=== PATIENT | female | born 1950 | race Caucasian/White ===

== ENCOUNTER 2017-02-03 20:56 | Emergency (ER) | payer MEDICARE, BC ==
--- NOTE | 2017-02-03 22:37 | RADIOLOGY REPORT (SQ) ---
EXAM DESCRIPTION: FOOT LEFT COMPLETE COMPLETED DATE/TIME: 02/03/2017 10:12 pm REASON FOR STUDY: pain COMPARISON: None. NUMBER OF VIEWS: Three views. TECHNIQUE: AP, lateral and oblique radiographic images acquired of the left foot. LIMITATIONS: None. FINDINGS: MINERALIZATION: Normal. BONES: Mildly comminuted intra-articular calcaneus fracture with fracture lines extending into the ca lcaneal cuboid joint, no significant displacement. No dislocation. No worrisome bone lesions. JOINTS: No effusions. SOFT TISSUES: No soft tissue swelling. No foreign body. OTHER: No other significant finding. IMPRESSION: Mildly comminuted intra-articular calcaneus fracture with fracture lines extending into the calcaneal cuboid joint, no significant displacement. TECHNICAL DOCUMENTATION: JOB ID: [id number] [employer]- All Rights Reserved
[2017-02-03] MEDS ORDERED: HYDROCODONE/ACETAMINOPHEN 5-325 MG TABLET PO ONE (22:54)
--- NOTE | 2017-02-03 23:17 | ER Document Report ---
ED General - General Chief Complaint: Foot Injury Stated Complaint: LEFT FOOT INJURY/FALL Time Seen by Provider: 02/03/17 22:18 Notes: Patient is a pleasant 58-year-old female presents with complaints of pain in the left heel. She missed a step going down steps and came down hard onto her foot. She says she has been unable to bear weight on it since. She has some swelling that goes through to the dorsum of the foot and the lateral aspect. She denies any injuries to her ankle. No injuries to her knee or hip. She denies any other complaints at this time. TRAVEL OUTSIDE OF THE [place] IN LAST 30 DAYS: No - Related Data Allergies/Adverse Reactions: pentazocine lactate [From [employer]] Allergy (Verified 02/03/17 21:09) ITCHING Past Medical History - Social History Smoking Status: Unknown if Ever Smoked Frequency of alcohol use: None Drug Abuse: None Family History: Reviewed & Not Pertinent - Past Medical History Cardiac Medical History: Reports: Hx Hypertension Denies: Hx Heart Attack Pulmonary Medical History: Denies: Hx Asthma Neurological Medical History: Denies: Hx Cerebrovascular Accident, Hx Seizures Renal/ Medical History: Denies: Hx Peritoneal Dialysis GI Medical History: Reports: Hx Hiatal Hernia. Denies: Hx Hepatitis, Hx Ulcer Infectious Medical History: Denies: Hx Hepatitis Past Surgical History: Reports: Hx Hysterectomy, Hx Mastectomy - BILATERAL. Denies: Hx Open Heart Surgery, Hx Pacemaker Review of Systems - Review of Systems Notes: My Normal Review Basic REVIEW OF SYSTEMS: CONSTITUTIONAL : Denies fever, chills, or sweats. Denies recent illness. MUSCULOSKELETAL: Left foot pain. SKIN: Denies rash or skin lesions. NEUROLOGICAL: Denies sensory or motor loss. ALL OTHER SYSTEMS REVIEWED AND NEGATIVE. Physical Exam - Vital signs Vitals: Temp Pulse Resp BP Pulse Ox 98.3 F 102 H 20 132/83 H 93 02/03/17 21:10 02/03/17 21:10 02/03/17 21:10 02/03/17 21:10 02/03/17 21:10 - Notes Notes: General Appearance: Well nourished, alert, cooperative, no acute distress, mild to moderate obvious discomfort. Vitals: reviewed, See vital signs table. Extremities: strength 5/5 in all extremities, good pulses in all extremities, patient has some bruising and swelling to the lateral aspect of the foot. She has tenderness palpation of the calcaneus and the lateral aspect of the foot up to the dorsum of the lateral aspect of the foot. She still able to flex and extend her foot but has some pain in doing so. No pain to palpation over the Achilles tendon itself. Skin: warm, dry, appropriate color, no rash Neuro: speech clear, oriented x 3, normal affect, responds appropriately to questions. Course - Re-evaluation Re-evalutation: 02/04/17 05:57 Patient's x-ray unfortunately does show an Achilles fracture. It is nondisplaced. I will place her in a posterior splint. I will refer her to orthopedic also informed the patient that she can follow-up with podiatry if there is a template clerk that she prefers. I have prescribed her some pain medicine. I encouraged her return to ER immediately if she has worsening pain or swelling, numbness or weakness in the foot, or if she has further concerns. Patient agrees with plan will be discharged home. Dictation of this chart was performed using voice recognition software; therefore, there may be some unintended grammatical errors. - Vital Signs Vital signs: Temp Pulse Resp BP Pulse Ox 98.3 F 85 18 135/80 H 100 02/03/17 21:10 02/03/17 23:52 02/03/17 23:52 02/03/17 23:52 02/03/17 23:52 Discharge - Discharge Clinical Impression: Left calcaneal fracture Qualifiers: Encounter type: initial encounter Calcaneus location: unspecified portion of calcaneus Fracture type: closed Fracture alignment: nondisplaced Qualified Code( s): S92.002A - Unspecified fracture of left calcaneus, initial encounter for closed fracture Condition: Good Disposition: HOME, SELF-CARE Additional Instructions: Your x-ray shows that you have a fracture through your calcaneus. Please follow -up with the orthopedist or follow-up with the template clerk within a week for close reevaluation and further treatment. Please do not bear weight on-year- left foot. Please keep the splint in place. You can loosen the Adam wrap on the splint if you feel that is too tight. Please return to the ER immediately if you continue have worsening pain in her foot despite loosening the splint. Prescriptions: Hydrocodone/Acetaminophen [[place] 5-325 mg Tablet] 1 tab PO Q4 PRN #12 tablet PRN Reason: For [facility] Pain Forms: Return to Work Referrals: RACHEL HOYOS MD [ACTIVE STAFF] - Follow up in 3-5 days
[2017-02-04 00:29] VITALS: BP 135/80
== END 2017-02-03 23:52 | disposition home or self-care (01) ==
LOC: ER 20:56
PROC: 2W3RX1Z Immobilization of Left Lower Leg using Splint (ICD-10-PCS; principal; 2017-02-03)
DX: S92.002A Unspecified fracture of left calcaneus, initial encounter for closed fracture (principal); M79.672 Pain in left foot; X58.XXXA Exposure to other specified factors, initial encounter
CPT/HCPCS: 99283; 73630; 29515; A9270

== ENCOUNTER 2019-10-09 10:28 | Emergency (ER) | payer MEDICARE, BC ==
--- NOTE | 2019-10-09 11:16 | RADIOLOGY REPORT (SQ) ---
EXAM DESCRIPTION: CHEST SINGLE VIEW IMAGES COMPLETED DATE/TIME: 10/09/2019 11:06 am REASON FOR STUDY: bed 16 chest pain COMPARISON: None. EXAM PARAMETERS: NUMBER OF VIEWS: One view. TECHNIQUE: An AP view of the chest was obtained. RADIATION DOSE: NA LIMITATIONS: None. FINDINGS: LUNGS AND PLEURA: No consolidation, pleural effusion or pneumothorax. MEDIASTINUM AND HILAR STRUCTURES: No mediastinal or hilar contour abnormality. HEART AND VASCULAR STRUCTURES: The cardiac silhouette and pulmonary vasculature are within normal snow its. BONES: No acute findings. HARDWARE: Surgical clips that project within the left axilla and ACDF hardware. OTHER: No other finding. IMPRESSION: No acute cardiopulmonary process. TECHNICAL DOCUMENTATION: JOB ID: [id number] [employer]- All Rights Reserved Reading location - IP/workstation name: [email or web address]
[2019-10-09] MEDS ORDERED: NORMAL SALINE 500 ML IV ONE (11:20)
[2019-10-09] MEDS: NITROGLYCERIN 0.4 MG/TAB 25 TAB/BOTTLE SL PRN ×3 (11:26→12:01)
[2019-10-09 11:40] LABS: ABSOLUTE LYMPHOCYTES (AUTO) 2.1 10^3/uL (0.5-4.7); ABSOLUTE MONOCYTES (AUTO) 0.6 10^3/uL (0.1-1.4); ABSOLUTE NEUT (AUTO) 2.7 10^3/uL (1.7-8.2); BASOPHILS % (AUTO) 0.9 % (0-2); EOSINOPHILS % (AUTO) 0.1 % (0-6); HEMATOCRIT 39.9 % (36.0-47.0); HEMOGLOBIN 13.8 g/dL (12.0-15.5); LYMPHOCYTES % (AUTO) 38.3 % (13-45); MEAN CORPUSCULAR HEMOGLOBIN 29.8 pg (27.0-33.4); MEAN CORPUSCULAR HGB CONC 34.7 g/dL (32.0-36.0); MEAN CORPUSCULAR VOLUME 86 fl (80-97); MONOCYTES % (AUTO) 11.5 % (3-13); PLATELET COUNT 188 10^3/uL (150-450); RED BLOOD COUNT 4.64 10^6/uL (3.72-5.28); RED CELL DISTRIBUTION WIDTH 13.8 % (11.5-14.0); SEGMENTED NEUTROPHILS % (AUTO) 49.2 % (42-78); TOTAL CELLS COUNTED % (AUTO) 100 %; WHITE BLOOD COUNT 5.5 10^3/uL (4.0-10.5)
[2019-10-09 11:49] LABS: INTERNATIONAL RATION (INR) 1.06; PROTHROMBIN TIME 13.9 SEC (11.4-15.4)
[2019-10-09 11:50] LABS: PARTIAL THROMBOPLASTIN TIME 22.6 SEC (23.5-35.8)
[2019-10-09 11:52] LABS: D-DIMER 0.46 ug/mL (0.00-0.50)
[2019-10-09 12:04] LABS: ALBUMIN 4.1 g/dL (3.5-5.0); ALKALINE PHOSPHATASE 67 U/L (38-126); ANION GAP 6 (5-19); ASPARTATE AMINO TRANSFERASE 27 U/L (14-36); BILIRUBIN,TOTAL 0.3 mg/dL (0.2-1.3); BLOOD UREA NITROGEN 14 mg/dL (7-20); CALCIUM 9.2 mg/dL (8.4-10.2); CARBON DIOXIDE 30 mmol/L (22-30); CHLORIDE 100 mmol/L (98-107); CREATINE KINASE 112 U/L (30-135); GLUCOSE 93 mg/dL (75-110); POTASSIUM 4.4 mmol/L (3.6-5.0); TOTAL PROTEIN 6.5 g/dL (6.3-8.2)
[2019-10-09 12:11] LABS: URINE AMPHETAMINES SCREEN NEGATIVE; URINE BARBITURATES SCREEN NEGATIVE; URINE BENZODIAZEPINES SCREEN NEGATIVE; URINE COCAINE SCREEN NEGATIVE; URINE MARIJUANA (THC) SCREEN NEGATIVE; URINE METHADONE SCREEN NEGATIVE; URINE PHENCYCLIDINE SCREEN NEGATIVE
[2019-10-09] MEDS ORDERED: MORPHINE SULFATE 10 MG/ML INJ IV ONE (12:24)
[2019-10-09] MEDS ORDERED: ONDANSETRON HCL INJ/PF 4 MG/2 ML SDV IV ONE (12:24)
[2019-10-09 12:26] LABS: NT PRO BNP 19 pg/mL (<125)
[2019-10-09 12:29] LABS: CREATINE KINASE MB < 0.22 ng/mL (<4.55); TROPONIN I < 0.012 ng/mL
--- NOTE | 2019-10-09 13:50 | PDOC CONSULTATION ---
Consultation Consult Date: 10/09/19 Attending physician:: LEYDI STRANGE Provider Consulted: MARAL ARORA Consult reason:: Chest pressure History of Present Illness Admission Date/PCP: JUAN STEWART PA-C History of Present Illness: GORDON DUARTE is a 69 year old female with history of hypertension, hyperlipidemia, ex-smoker who quit in 1994 and without family history of premature coronary artery disease who is consulted by Dr. Strange for evaluation of chest pressure. The patient began with symptoms in on and off fashion approximately 4 weeks ago however these have worsened during this past week and now her pressure is lasted longer and now resolving spontaneously. This morning she began with chest pressure at around 0 645 and currently continues to have index symptoms. She localized it to the substernal area and also feels like a fullness that radiates to the neck without any other associated symptoms. She also relates feeling more sleepy and tired recently, she is sleeping more. Unfortunately, her in February 2019 and "I just feel like my did". She is very anxious about her symptoms. Physical exam on 10/09/2019 in the emergency room: GENERAL: Pleasant and conversational. Oriented x3 with normal mood. Not in acute distress. Well groomed and well developed. HEENT: Normocephalic, atraumatic. Pupils equal. Sclerae anicteric. Oropharynx moist. NECK: No JVD. No carotid bruits. LUNGS: Clear to auscultation bilaterally. Normal respiratory effort without the use of accessory muscles or intercostal retractions. CARDIOVASCULAR: Regular rate and rhythm, normal S1 and S2 without murmurs, rubs, or gallops. PMI not displaced. EXTREMITIES: No edema, no cyanosis, no clubbing. +2 pulses femoral and pedal pulses bilaterally. SKIN: No lesions or rashes. MUSCULOSKELETAL: No chest tenderness to palpation. NEUROLOGIC: Nonfocal. No gross sensory or motor deficits bilateral upper or lower extremities. Past Medical History Cardiac Medical History: Reports: Hypertension Denies: Myocardial Infarction Pulmonary Medical History: Denies: Asthma Neurological Medical History: Denies: Seizures GI Medical History: Reports: Hiatal Hernia Denies: Hepatitis Hematology: Denies: Anemia, Sickle Cell Disease Past Surgical History Past Surgical History: Reports: Hysterectomy, Mastectomy - BILATERAL Denies: Amputation, Pacemaker Social History Smoking Status: Former Smoker Family History Family History: Reviewed & Not Pertinent Parental Family History Reviewed: Yes Children Family History Reviewed: Yes Sibling(s) Family History Reviewed.: Yes Medication/Allergy Home Medications: Aspirin [Aspirin EC] 81 mg PO DAILY PRN 11/11/15 Besifloxacin HCl [Besivance 0.6% Oph Susp 5 ml] 1 drop OP .3 AND 8 TODAY 11/11/15 Cyclosporine 0.05% Oph Emulsio [Restasis 0.05% Opthalmic Droperette] 1 drop OP ASDIR PRN 11/11/15 Difluprednate [Durezol] 1 drop OP .3 AND 8 TODAY 11/11/15 Famotidine [Pepcid 20 mg Tablet] 20 mg PO BID 11/11/15 Glucosam/Chondr/Collagn/Hyalur [Glucosamine & Chondroitin Cap] 1 each PO DAILY 11/11/15 Ketotifen Fumarate [Refresh] 1 ml OP ASDIR PRN 11/11/15 Meloxicam [Mobic 7.5 Mg Tablet] 7.5 mg PO DAILY 11/11/15 Nepafenac [Ilevro] 1 drop OP .3 AND 8 TODAY 11/11/15 Franklin-3/Dha/Epa/Fish Oil [Franklin 3 500 Softgel] 1 each PO DAILY 11/11/15 Ramipril [Altace 5 mg Capsule] 5 mg PO DAILY 11/11/15 Simvastatin [Zocor 10 mg Tablet] 10 mg PO QHS 11/11/15 Spironolactone [Aldactone] 50 mg PO DAILY 11/11/15 Venlafaxine HCl [Effexor] 37.5 mg PO DAILY 11/11/15 Hydrocodone/Acetaminophen [[place] 5-325 mg Tablet] 1 tab PO Q4 PRN #12 tablet 02/03/17 Allergies/Adverse Reactions: pentazocine lactate [From Nexvet] Allergy (Verified 02/03/17 21:09) ITCHING Physical Exam Vital Signs: Temp Pulse Resp BP Pulse Ox 98.3 F 18 131/90 H 98 10/09/19 10:59 10/09/19 12:00 10/09/19 12:00 10/09/19 12:00 Intake & Output 10/08/19 10/09/19 10/10/19 06:59 06:59 06:59 Intake Total 500 Balance 500 Results Laboratory Results: 10/09/19 11:28 10/09/19 11:28 10/09/19 10/09/19 10/09/19 10:45 10:45 11:28 WBC Cancelled 5.5 RBC Cancelled 4.64 Hgb Cancelled 13.8 Hct Cancelled 39.9 MCV Cancelled 86 MCH Cancelled 29.8 MCHC Cancelled 34.7 RDW Cancelled 13.8 Plt Count Cancelled 188 Seg Neutrophils % Cancelled 49.2 Sodium Cancelled Potassium Cancelled Chloride Cancelled Carbon Dioxide Cancelled Anion Gap Cancelled BUN Cancelled Creatinine Cancelled Est GFR ( Amer) Cancelled Est GFR (Non-Af Amer) Cancelled Glucose Cancelled Calcium Cancelled Total Bilirubin Cancelled AST Cancelled Alkaline Phosphatase Cancelled Total Protein Cancelled Albumin Cancelled 10/09/19 11:28 WBC RBC Hgb Hct MCV MCH MCHC RDW Plt Count Seg Neutrophils % Sodium 136.4 L Potassium 4.4 Chloride 100 Carbon Dioxide 30 Anion Gap 6 BUN 14 Creatinine 0.72 Est GFR ( Amer) > 60 Est GFR (Non-Af Amer) Glucose 93 Calcium 9.2 Total Bilirubin 0.3 AST 27 Alkaline Phosphatase 67 Total Protein 6.5 Albumin 4.1 10/09/19 10/09/19 10/09/19 10:45 10:45 11:28 Creatine Kinase Cancelled 112 CK-MB (CK-2) Cancelled Troponin I Cancelled NT-Pro-B Natriuret Pep 10/09/19 11:28 Creatine Kinase CK-MB (CK-2) < 0.22 Troponin I < 0.012 NT-Pro-B Natriuret Pep 19 Impressions: Chest X-Ray 10/09/19 10:37 IMPRESSION: No acute cardiopulmonary process. 10/09/19 11:28 10/09/19 11:28 MCV 86 fl (80-97) 10/09/19 11:28 MCH 29.8 pg (27.0-33.4) 10/09/19 11:28 MCHC 34.7 g/dL (32.0-36.0) 10/09/19 11:28 RDW 13.8 % (11.5-14.0) 10/09/19 11:28 Seg Neutrophils % 49.2 % (42-78) 10/09/19 11:28 Chloride 100 mmol/L (98-107) 10/09/19 11:28 Carbon Dioxide 30 mmol/L (22-30) 10/09/19 11:28 Anion Gap 6 (5-19) 10/09/19 11:28 Est GFR ( Amer) > 60 (>60) 10/09/19 11:28 Est GFR (Non-Af Amer) Cancelled 10/09/19 10:45 Glucose 93 mg/dL (75-110) 10/09/19 11:28 Calcium 9.2 mg/dL (8.4-10.2) 10/09/19 11:28 Total Bilirubin 0.3 mg/dL (0.2-1.3) 10/09/19 11:28 AST 27 U/L (14-36) 10/09/19 11:28 Alkaline Phosphatase 67 U/L (38-126) 10/09/19 11:28 Total Protein 6.5 g/dL (6.3-8.2) 10/09/19 11:28 Albumin 4.1 g/dL (3.5-5.0) 10/09/19 11:28 10/09/19 10/09/19 10/09/19 10:45 10:45 11:28 Creatine Kinase Cancelled 112 CK-MB (CK-2) Cancelled Troponin I Cancelled NT-Pro-B Natriuret Pep 10/09/19 11:28 Creatine Kinase CK-MB (CK-2) < 0.22 Troponin I < 0.012 NT-Pro-B Natriuret Pep 19 Current Medication List Generic Name Dose Route Start Last Admin Trade Name Freq PRN Reason Stop Dose Admin Nitroglycerin 1 tab 10/09/19 11:16 10/09/19 12:01 Nitrostat 0.4 Mg (1/150 Gr) Tabs 25/Bottle SL 11/08/19 11:15 1 tab Q5MP PRN Administration FOR CHEST PAIN Discontinued Medications Generic Name Dose Route Start Last Admin Trade Name Freq PRN Reason Stop Dose Admin Sodium Chloride 500 mls @ 0 mls/hr 10/09/19 11:20 10/09/19 12:10 Nacl 0.9% 500 Ml Iv Soln IV 10/09/19 11:21 Infused NOW ONE Infusion Wide Open Morphine Sulfate 4 mg 10/09/19 12:24 10/09/19 12:35 Morphine 10 Mg/Ml Inj IV 10/09/19 12:25 4 mg NOW ONE Administration Ondansetron HCl 4 mg 10/09/19 12:24 10/09/19 12:32 Zofran Inj/Pf 4 Mg/2 Ml Sdv IV 10/09/19 12:25 4 mg NOW ONE Administration Assessment & Plan - Diagnosis (1) Chest pain Qualifiers: Chest pain type: unspecified Qualified Code(s): R07.9 - Chest pain, unspecified Plan: 69-year-old female with cardiac risk factors of age, ex-smoker, hypertension and hyperlipidemia who has been having chest pressure for at least 4 weeks. More recently, she began with chest pressure this morning at 0645 and her first troponin at approximately almost 4 hours after initial symptoms is negative. Her symptoms are atypical however, given the persistence as well as her cardiac risk factors she warrants further risk stratification. I personally discussed with her getting a second troponin and, if negative, we can keep her in the hospital to perform an echocardiogram and nuclear stress test tomorrow given that she continues to have chest discomfort. Her EKG does not show ischemic changes. The patient stated that she is very anxious about her symptoms and that she feels like her before he and questioned why she would stay at the hospital without invasive cardiac cath capabilities. I explained to her that noninvasive cardiac risk stratification does not require the presence of an active phlebotomist lab assistant much less one with PCI capabilities as these studies are performed in the outpatient setting much of them in physicians offices. She does not feel satisfied with this approach and would like to get this done at a place with PCI capabilities. I gave her the option of [facility] enter versus [facility] and she stated she is more familiar with [facility] therefore I discussed the patient with Dr. Strange in the emergency room who will contact [facility] and try to get the patient transferred for further care.
--- NOTE | 2019-10-09 14:38 | ER Document Report ---
Entered by JAMEY RANDHAWA SCRIBE 10/09/19 1148 Acting as scribe for:LEYDI STRANGE MD ED General - General Chief Complaint: Chest Pain Stated Complaint: CHEST PAIN Time Seen by Provider: 10/09/19 10:40 Primary Care Provider: SWATI PINEDA MD [NO LOCAL MD] - Follow up as needed Information source: Patient Notes: This 69-year-old female with a history of a right bundle branch block presents to the emergency department complaining of chest pressure that began this morning. Patient explains that she went to sleep feeling fine last night. Patient states that she awoke earlier than she usual today. Patient said that after getting around, she started to feel palpations with a "pressure and fullness" in her chest. Patient describes the discomfort as diffuse, 3/5 and radiating to her neck. Patient reports having similar episodes that have came and went for the past month. Patient said that today the discomfort did not go away so she came to the emergency department. Patient mentions that these are the same symptoms that she had with her right bundle branch block previously. Patient reports that within the past week she has noticed feeling short of breath with going up the three flights of stairs to her apartment which at baseline was not present before. Patient said that she took a 325 mg Aspirin before leaving her apartment this morning. Patient reports headache and leg swelling. Patient denies leg pain, nausea and diaphoresis. TRAVEL OUTSIDE OF THE [place] IN LAST 30 DAYS: No - Related Data Allergies/Adverse Reactions: pentazocine lactate [From [employer]] Allergy (Verified 02/03/17 21:09) ITCHING Home Medications: pt states that she is on BP medications Past Medical History - General Information source: Patient - Social History Smoking Status: Former Smoker Cigarette use (# per day): No Chew tobacco use (# tins/day): No Lives with: Family - son Family History: CAD Patient has homicidal ideation: No - Past Medical History Cardiac Medical History: Reports: Hx Hypertension, Other - Right Bundle Branch Block GI Medical History: Reports: Hx Hiatal Hernia Past Surgical History: Reports: Hx Hysterectomy, Hx Mastectomy - BILATERAL Review of Systems - Review of Systems Constitutional: See HPI. denies: Diaphoresis EENT: No symptoms reported Cardiovascular: See HPI, Chest pain Respiratory: See HPI, Short of breath Gastrointestinal: See HPI. denies: Nausea Genitourinary: No symptoms reported Female Genitourinary: No symptoms reported Musculoskeletal: See HPI, Leg swelling. denies: Other - Leg pain Skin: No symptoms reported Hematologic/Lymphatic: No symptoms reported Neurological/Psychological: No symptoms reported -: Yes All other systems reviewed and negative Physical Exam - Vital signs Vitals: Pulse Ox 99 10/09/19 10:37 - Notes Notes: Physical Exam: General: Alert, appears to be in moderate distress with the chest fullness and pressure she is describing. HEENT: Normocephalic. Atraumatic. PERRL. Extraocular movements intact. Oropharynx clear. Neck: Supple. Non-tender. Respiratory: No respiratory distress. Clear and equal breath sounds bilaterally. Cardiovascular: Regular rate and rhythm. Abdominal: Normal Inspection. Non-tender. No distension. Normal Bowel Sounds. Back: No gross abnormalities. Extremities: Moves all four extremities. Upper extremities: Normal inspection. Normal ROM. Lower extremities: Normal inspection. No edema. Normal ROM. Neurological: Normal cognition. AAOx4. Normal speech. Psychological: Normal affect. Normal Mood. Skin: Warm. Dry. Normal color. Course - Re-evaluation Re-evalutation: 10/09/19 12:48 Patient is anxious and very effective at this time. Patient is aware of our cardiac intervention limitation here at our hospital and is anxious that she needs to be transferred to another hospital. 10/09/19 12:49 Case discussed with the on-call certified corporate travel executive Dr. Jones who will be down to see patient in the ED. 10/09/19 13:00 Went into see patient to let her know and notify her that I had spoken to Dr. Jones train control technician certified corporate travel executive who will be in to see patient. Patient was talking on the phone not showing any signs of distress. However once I would ask her if she was still having pain C with say yes in her lower sternum and also in her neck area patient does admit to having a hiatal hernia since age 23 and states that this is her discomfort is not in any way related to her hiatal hernia. 10/09/19 14:02 Patient resting comfortably at this time anxiety level seems to be decreased. I. Explained that she is accepted in transfer testing [facility] to [facility]. - Vital Signs Vital signs: Temp Pulse Resp BP Pulse Ox 98.3 F 12 121/66 98 10/09/19 10:59 10/09/19 13:35 10/09/19 13:35 10/09/19 13:35 10/09/19 14:08 Vital signs stable - Laboratory Result Diagrams: 10/09/19 11:28 10/09/19 11:28 Laboratory results interpreted by me: 10/09/19 10/09/19 11:28 11:28 APTT 22.6 L Sodium 136.4 L Initial labs within normal limits troponin less than detectable at 0.012. D- dimer also below the cutoff for concern for pulmonary embolus. 10/09/19 14:09 Repeat troponin pending at this time. 10/09/19 14:37 Repeat troponin again essentially negative at the level of 0.012. - Diagnostic Test Radiology reviewed: Image reviewed, Reports reviewed Radiology results interpreted by me: 10/09/19 12:47 Chest x-ray no acute process. - EKG Interpretation by Me Additional EKG results interpreted by me: 10/09/19 12:46 Twelve-lead EKG shows normal sinus rhythm with a right bundle branch block rate of 94. Also noted left posterior fascicular block. Second EKG shows normal sinus rhythm rate of 87 with right bundle branch block and left posterior fascicular block still present. Discharge - Discharge Clinical Impression: Chest pain Qualifiers: Chest pain type: unspecified Qualified Code(s): R07.9 - Chest pain, unspecified Condition: Fair Disposition: [facility] Referrals: SWATI PINEDA MD [NO LOCAL MD] - Follow up as needed I personally performed the services described in the documentation, reviewed and edited the documentation which was dictated to the scribe in my presence, and it accurately records my words and actions.
[2019-10-09] MEDS ORDERED: NITROGLYCERIN 2% OINTMENT 1 GM PACKET TP ONE (15:31)
[2019-10-09 15:54] VITALS: BP 150/79
--- NOTE | 2019-10-09 22:31 | EKG REPORT ---
SEVERITY:- ABNORMAL ECG - SINUS RHYTHM RBBB AND LPFB : Confirmed by: Darryl Montoya 09-Oct-2019 22:30:25
--- NOTE | 2019-10-09 22:31 | EKG REPORT ---
SEVERITY:- ABNORMAL ECG - SINUS RHYTHM RBBB AND LPFB : Confirmed by: Darryl Montoya 09-Oct-2019 22:30:32
== END 2019-10-09 15:55 | disposition short-term general hospital (02) ==
LOC: ER 10:28
DX: R07.9 Chest pain, unspecified (principal); R06.02 Shortness of breath; I10 Essential (primary) hypertension; Z90.710 Acquired absence of both cervix and uterus
CPT/HCPCS: 93005; 99285; 96361; 96374; 96375; 36415; 82553; 82550; 85025; 85610; 85730; 80053; 84484; 80307; 85379; 83880; 71045; 93010; A9270 ×2; J2270; J2405; J7040